=== PATIENT | female | born 1970 | race Hispanic/Latino ===

== ENCOUNTER 2021-09-20 16:55 | Observation (INO) | payer OTHER ==
[~2021-09-20] VITALS: Ht 152.4 cm; Wt 100.2 kg
[~2021-09-20 16:55] MED LIST: IBUPROFEN400 MG PO; PHENTERMINE H37.5 MG PO
[2021-09-20] MEDS ORDERED: ACETAMINOPHEN 325 MG TAB PO ONE (17:30)
[2021-09-20 18:00] LABS: CLARITY,URINE CLOUDY (CLEAR); COLOR,URINE YELLOW (YELLOW); KETONES,URINE 1+ (NEGATIVE); LEUKOCYTE ESTERASE ,URINE TRACE (NEGATIVE); NITRITE,URINE NEGATIVE (NEGATIVE); PROTEIN,URINE DIPSTICK >=300 (NEGATIVE)
[2021-09-20 18:13] LABS: BACTERIA,URINE MANY /HPF; EPITHELIAL CELLS,URINE MANY /LPF; WBC,URINE (MAN) >50 /HPF (0-5)
[2021-09-20] MEDS ORDERED: IBUPROFEN 600 MG TAB PO STA (18:29)
[2021-09-20] MEDS ORDERED: CEFTRIAXONE 1 GM in SODIUM CHLORIDE 0.9% 50ML 50 ML IV ONE (18:30)
[2021-09-20] MEDS ORDERED: SODIUM CHLORIDE 0.9% 1000ML 1,000 ML IV ONE ×2 (18:30→19:15)
[2021-09-20 18:40] LABS: BASOPHILS % 0.3 % (0.0-1.0); HEMATOCRIT 39.2 % (34.2-44.1); HEMOGLOBIN 12.9 g/dL (12.0-16.0); LYMPHOCYTES # (AUTO) 1.8 (1.0-3.2); LYMPHOCYTES % 15.2 % (18.0-39.1); MEAN CORPUSCULAR HEMOGLOBIN 29.3 pg (28-32); MEAN CORPUSCULAR HGB CONC 32.9 g/dL (31-35); MEAN CORPUSCULAR VOLUME 89.1 fL (81-99); MONOCYTES % 8.4 % (4.4-11.3); NEUTROPHILS # (AUTO) 8.7 (2.1-6.9); NEUTROPHILS % 75.8 % (38.7-80.0); PLATELET COUNT 257 x10e3/uL (140-360); RED CELL DISTRIBUTION WIDTH 12.7 % (11.7-14.4)
[2021-09-20] MEDS ORDERED: IBUPROFEN 600 MG TAB ONE (18:42)
[2021-09-20 18:58] LABS: ALBUMIN/GLOBULIN RATIO 0.7 (0.8-2.0); ANION GAP 15.8 mmol/L (8-16); CALCIUM 8.4 mg/dL (8.4-10.2); CREATININE, SERUM 0.74 mg/dL (0.57-1.11); POTASSIUM 3.8 mmol/L (3.5-5.1)
[2021-09-20] MEDS ORDERED: ACETAMINOPHEN 325 MG TAB PO PRN (19:30)
[2021-09-20] MEDS: ALBUTEROL SULF 0.083% NEB SOLN 3 ML NEB NEB SCH ×3 (19:30→23:12)
[2021-09-20] MEDS: SODIUM CHLORIDE 0.9% 1000ML 1,000 ML IV SCH ×2 (19:30→22:30)
[2021-09-20 21:09] VITALS: BP 99/66
[2021-09-20 21:51] VITALS: BP 99/66
[2021-09-20] MEDS ORDERED: VASOTEC5 MG PO (22:09)
[2021-09-20] MEDS ORDERED: METFORMIN HCL500 MG PO (22:09)
[2021-09-20] MEDS ORDERED: OMEPRAZOLE20 MG PO (22:09)
[2021-09-20] MEDS ORDERED: TRULICITY3 MG/0.5 M SC (22:09)
[2021-09-20] MEDS ORDERED: ATORVASTATIN CA10 MG PO (22:09)
[2021-09-20] MEDS: IPRATROPIUM BROMIDE 0.02% 2.5 ML NEB NEB SCH (23:12)
[2021-09-21] VITALS: BP 102/63
[2021-09-21 01:41] LABS: CREATINE KINASE 54 IU/L (29-168)
[2021-09-21] MEDS: ALBUTEROL SULF 0.083% NEB SOLN 3 ML NEB NEB SCH ×5 (03:15→23:40)
[2021-09-21 04:00] VITALS: BP 107/75
[2021-09-21] MEDS: IPRATROPIUM BROMIDE 0.02% 2.5 ML NEB NEB SCH ×3 (06:55→19:10)
[2021-09-21 07:01] LABS: BASOPHILS % 0.4 % (0.0-1.0); EOSINOPHILS % 0.1 % (0.0-6.0); HEMATOCRIT 36.7 % (34.2-44.1); HEMOGLOBIN 11.7 g/dL (12.0-16.0); LYMPHOCYTES # (AUTO) 1.5 (1.0-3.2); LYMPHOCYTES % 20.1 % (18.0-39.1); MEAN CORPUSCULAR HEMOGLOBIN 29.4 pg (28-32); MEAN CORPUSCULAR HGB CONC 31.9 g/dL (31-35); MEAN CORPUSCULAR VOLUME 92.2 fL (81-99); MONOCYTES # (AUTO) 0.8 (0.2-0.8); MONOCYTES % 10.7 % (4.4-11.3); NEUTROPHILS # (AUTO) 5.1 (2.1-6.9); NEUTROPHILS % 68.3 % (38.7-80.0); PLATELET COUNT 204 x10e3/uL (140-360); RED BLOOD COUNT 3.98 x10e6/uL (3.6-5.1); RED CELL DISTRIBUTION WIDTH 12.9 % (11.7-14.4)
[2021-09-21 07:20] LABS: ALBUMIN 2.4 g/dL (3.5-5.0); ALBUMIN/GLOBULIN RATIO 0.6 (0.8-2.0); ANION GAP 12.5 mmol/L (8-16); CREATININE, SERUM 0.57 mg/dL (0.57-1.11); POTASSIUM 3.5 mmol/L (3.5-5.1)
[2021-09-21 08:08] LABS: CREATINE KINASE MB 0.7 ng/mL (0-5.0)
[2021-09-21 08:14] VITALS: BP 113/75
[2021-09-21] MEDS: CEFTRIAXONE 1 GM in SODIUM CHLORIDE 0.9% 50ML 50 ML IV SCH (08:45)
[2021-09-21] MEDS ORDERED: GUAIFENESIN/DEXTROMETHORPHAN LIQD 5 ML UDC NG PRN (09:00)
[2021-09-21] MEDS ORDERED: DEXTROSE 50% SYRINGE 50 ML IV PRN (09:00)
[2021-09-21 09:19] LABS: CHOL/HDL RATIO 6.5 (3.0-3.6)
[2021-09-21] MEDS: SODIUM CHLORIDE 0.9% 1000ML 1,000 ML IV SCH ×2 (09:53→17:51)
[2021-09-21] MEDS: BENZONATATE 100 MG CAP PO SCH ×3 (10:17→21:06)
[2021-09-21] MEDS: ENALAPRIL MALEATE 5 MG TAB PO SCH (10:17)
[2021-09-21] MEDS: LORATADINE 10 MG TAB PO SCH (10:17)
[2021-09-21] MEDS: INSULIN REGULAR, HUMAN 100 UNIT/1 ML SQ SCH ×3 (11:30→21:06)
[2021-09-21 14:00] LABS: CREATINE KINASE MB 0.6 ng/mL (0-5.0)
[2021-09-21] MEDS ORDERED: ENOXAPARIN SOD INJ 40 MG/0.4 ML SYR SC SCH (17:00)
[2021-09-21] MEDS ORDERED: ALPRAZOLAM 0.25 MG TAB PO PRN (19:30)
[2021-09-21 20:00] VITALS: BP 134/79
[2021-09-21] MEDS ORDERED: ATORVASTATIN 10 MG TAB PO SCH (21:00)
[2021-09-22] VITALS: BP 115/71
[2021-09-22] MEDS: ALBUTEROL SULF 0.083% NEB SOLN 3 ML NEB NEB SCH ×2 (03:30→06:58)
[2021-09-22 04:00] VITALS: BP 109/69
[2021-09-22] MEDS: SODIUM CHLORIDE 0.9% 1000ML 1,000 ML IV SCH (06:33)
[2021-09-22] MEDS: IPRATROPIUM BROMIDE 0.02% 2.5 ML NEB NEB SCH (06:58)
[2021-09-22] MEDS ORDERED: PANTOPRAZOLE SOD 40 MG TABEC PO SCH (07:30)
[2021-09-22] MEDS: INSULIN REGULAR, HUMAN 100 UNIT/1 ML SQ SCH (07:30)
[2021-09-22 08:05] VITALS: BP 116/75
[2021-09-22 08:21] VITALS: BP 116/75
[2021-09-22] MEDS: BENZONATATE 100 MG CAP PO SCH (09:04)
[2021-09-22] MEDS: CEFTRIAXONE 1 GM in SODIUM CHLORIDE 0.9% 50ML 50 ML IV SCH (09:04)
[2021-09-22] MEDS: LORATADINE 10 MG TAB PO SCH (09:04)
[2021-09-22] MEDS: ENALAPRIL MALEATE 5 MG TAB PO SCH (09:05)
[2021-09-22] MEDS ORDERED: CEPHALEXIN500 MG PO (10:57)
[2021-09-22] MEDS ORDERED: LORATADINE10 MG PO (10:57)
[2021-09-22] MEDS ORDERED: TESSALON PERLE100 MG PO (10:57)
[2021-09-22] MEDS ORDERED: ZITHROMAX500 MG PO (10:57)
[2021-09-22 11:27] VITALS: BP 107/71
== END 2021-09-22 11:00 | disposition home or self-care (01) ==
LOC: ER 17:22 → ERHOLD 19:34 → MED/SURG3 21:25 → INTOOBSV 09-22 08:23 → OBSVTOIN 09-22 08:23
PROVIDERS: ADMIT Internal Medicine; ATTEND Internal Medicine
DX: A41.9 Sepsis, unspecified organism (principal); N39.0 Urinary tract infection, site not specified; J18.9 Pneumonia, unspecified organism; E11.9 Type 2 diabetes mellitus without complications; E66.9 Obesity, unspecified; Z68.41 Body mass index [BMI] 40.0-44.9, adult; K21.9 Gastro-esophageal reflux disease without esophagitis; I10 Essential (primary) hypertension; Z20.822 Contact with and (suspected) exposure to COVID-19; Z79.84 Long term (current) use of oral hypoglycemic drugs
CPT/HCPCS: 36415 ×3; 71045; 80053 ×2; 80061; 81001; 82550 ×2; 82553 ×2; 82948 ×3; 83036; 83605; 84484 ×2; 85025 ×2; 87040; 87086; 94640 ×3; 94799 ×3; 96361 ×2; 99285; G0378 ×3; J0456 ×2; J0696 ×3; J1650; J7030 ×3; J7050 ×2; S0164; U0002

== ENCOUNTER → 2021-10-29 | Day surgery (SDC) | payer OTHER ==
[~2021-10-29] MED LIST changes: +AMOXICILLIN250 MG PO; +ATORVASTATIN CA10 MG PO; +BUPIVACAINE HCL 0.5% INJ 30 ML VIAL INJ ONE; +CEPHALEXIN500 MG PO; +DEXAMETHASONE SOD PHOS INJ 4 MG/ML SDV ONE; +FENTANYL CITRATE/PF 100MCG/2 ML INJ ONE; +KETOROLAC TROMETHAMINE 30 MG/ML VIAL ONE; +LIDOCAINE HCL 2% LOCAL INJ 5 ML SDV VIAL INJ ONE; +LORATADINE10 MG PO; +METFORMIN HCL500 MG PO; +MIDAZOLAM HCL 2 MG/2 ML VIAL ONE; +OMEPRAZOLE20 MG PO; +ONDANSETRON HCL INJ 2MG/ML 2ML 2 MG/ML VIAL ONE; +POVIDONE IODINE 0.05% 0.05 % ML PO ONE; +PROPOFOL IV EMULSION 10 MG/ML 20 ML VIAL ONE; +SEVOFLURANE INHAL SOLN 250 ML PEN BTL ONE; +SODIUM CHLORIDE 0.9% 50ML 100 ML ONE; +TESSALON PERLE100 MG PO; +TRULICITY3 MG/0.5 M SC; +VASOTEC5 MG PO; +ZITHROMAX500 MG PO
[2021-10-29 09:40] VITALS: BP 140/84
== END | disposition home or self-care (01) ==
LOC: OR 05:41
PROVIDERS: ATTEND Specialist
DX: S83.221A Peripheral tear of medial meniscus, current injury, right knee, initial encounter (principal); M76.51 Patellar tendinitis, right knee; M17.11 Unilateral primary osteoarthritis, right knee; M22.41 Chondromalacia patellae, right knee; E11.9 Type 2 diabetes mellitus without complications; I10 Essential (primary) hypertension; E66.01 Morbid (severe) obesity due to excess calories; X58.XXXA Exposure to other specified factors, initial encounter; Z01.810 Encounter for preprocedural cardiovascular examination; Z01.812 Encounter for preprocedural laboratory examination; Z20.822 Contact with and (suspected) exposure to COVID-19; Z79.84 Long term (current) use of oral hypoglycemic drugs; Z79.899 Other long term (current) drug therapy; Z68.41 Body mass index [BMI] 40.0-44.9, adult; Z87.01 Personal history of pneumonia (recurrent)
CPT/HCPCS: 29881; 36415; 81025; 82948; 93005; J0690; J1100; J1885; J2001; J2250; J2405; J2704; J3010; U0002

== ENCOUNTER 2021-11-14 07:12 | Outpatient (RCR) | payer OTHER ==
[~2021-11-14 07:12] MED LIST changes: -BUPIVACAINE HCL 0.5% INJ 30 ML VIAL INJ ONE; -DEXAMETHASONE SOD PHOS INJ 4 MG/ML SDV ONE; -FENTANYL CITRATE/PF 100MCG/2 ML INJ ONE; -KETOROLAC TROMETHAMINE 30 MG/ML VIAL ONE; -LIDOCAINE HCL 2% LOCAL INJ 5 ML SDV VIAL INJ ONE; -MIDAZOLAM HCL 2 MG/2 ML VIAL ONE; -ONDANSETRON HCL INJ 2MG/ML 2ML 2 MG/ML VIAL ONE; -POVIDONE IODINE 0.05% 0.05 % ML PO ONE; -PROPOFOL IV EMULSION 10 MG/ML 20 ML VIAL ONE; -SEVOFLURANE INHAL SOLN 250 ML PEN BTL ONE; -SODIUM CHLORIDE 0.9% 50ML 100 ML ONE
== END 2021-11-17 ==
LOC: PT 07:12
PROVIDERS: ATTEND Specialist
DX: Z47.1 Aftercare following joint replacement surgery (principal); S83.221A Peripheral tear of medial meniscus, current injury, right knee, initial encounter; M76.51 Patellar tendinitis, right knee; M17.11 Unilateral primary osteoarthritis, right knee

== ENCOUNTER 2021-11-21 07:00 | Outpatient (RCR) | payer OTHER | END 2021-12-18 | LOC: PT 07:00 | PROVIDERS: ATTEND Specialist | DX: Z47.1 Aftercare following joint replacement surgery (principal); Z96.651 Presence of right artificial knee joint ==

== ENCOUNTER → 2022-03-31 | Day surgery (SDC) | payer OTHER ==
[2022-03-27 09:17] LABS: ANION GAP 10.1 mmol/L (8-16); CALCIUM 8.7 mg/dL (8.4-10.2); CREATININE, SERUM 0.62 mg/dL (0.57-1.11); POTASSIUM 4.1 mmol/L (3.5-5.1)
[~2022-03-31] MED LIST changes: +ACETAMINOPHEN 1000 MG/100 ML IV ONE; +BUPIVACAINE 0.25% 30ML SDV ONE; +DEXAMETHASONE SOD PHOS INJ 4 MG/ML SDV ONE; +FENTANYL CITRATE/PF 100MCG/2 ML INJ ONE; +KETOROLAC TROMETHAMINE 30 MG/ML VIAL ONE; +LIDOCAINE HCL 2% LOCAL INJ 5 ML SDV VIAL INJ ONE; +MIDAZOLAM HCL 2 MG/2 ML VIAL ONE; +MOBIC7.5 MG PO; +ONDANSETRON HCL INJ 2MG/ML 2ML 2 MG/ML VIAL ONE; +POVIDONE IODINE 0.05% 0.05 % ML PO ONE; +PROPOFOL IV EMULSION 10 MG/ML 20 ML VIAL ONE; +SEVOFLURANE INHAL SOLN 250 ML PEN BTL ONE
[2022-03-31 14:15] VITALS: BP 127/79
== END | disposition home or self-care (01) ==
LOC: OR 09:49
PROVIDERS: ATTEND Podiatrist Foot & Ankle Surgery
DX: S92.311P Displaced fracture of first metatarsal bone, right foot, subsequent encounter for fracture with malunion (principal); T84.84XA Pain due to internal orthopedic prosthetic devices, implants and grafts, initial encounter; M06.9 Rheumatoid arthritis, unspecified; M19.90 Unspecified osteoarthritis, unspecified site; I10 Essential (primary) hypertension; E78.5 Hyperlipidemia, unspecified; E11.9 Type 2 diabetes mellitus without complications; Y83.8 Other surgical procedures as the cause of abnormal reaction of the patient, or of later complication, without mention of misadventure at the time of the procedure; Z91.048 Other nonmedicinal substance allergy status; Z01.810 Encounter for preprocedural cardiovascular examination; Z01.812 Encounter for preprocedural laboratory examination; Z20.822 Contact with and (suspected) exposure to COVID-19; Z79.84 Long term (current) use of oral hypoglycemic drugs; Z79.899 Other long term (current) drug therapy
CPT/HCPCS: 0223U; 28485; 36415 ×2; 80048; 81025; 82948; 88304; 88311; 93005; C1713 ×5; C1734; J0131; J0690; J1100; J1885; J2001; J2405; J2704; J3010; J2250

== ENCOUNTER 2022-07-06 15:59 | Outpatient (RCR) | payer OTHER ==
[~2022-07-06 15:59] MED LIST changes: -ACETAMINOPHEN 1000 MG/100 ML IV ONE; -BUPIVACAINE 0.25% 30ML SDV ONE; -DEXAMETHASONE SOD PHOS INJ 4 MG/ML SDV ONE; -FENTANYL CITRATE/PF 100MCG/2 ML INJ ONE; -KETOROLAC TROMETHAMINE 30 MG/ML VIAL ONE; -LIDOCAINE HCL 2% LOCAL INJ 5 ML SDV VIAL INJ ONE; -MIDAZOLAM HCL 2 MG/2 ML VIAL ONE; -ONDANSETRON HCL INJ 2MG/ML 2ML 2 MG/ML VIAL ONE; -POVIDONE IODINE 0.05% 0.05 % ML PO ONE; -PROPOFOL IV EMULSION 10 MG/ML 20 ML VIAL ONE; -SEVOFLURANE INHAL SOLN 250 ML PEN BTL ONE
== END 2022-07-20 ==
LOC: PT 15:59
PROVIDERS: ATTEND Podiatrist Foot & Ankle Surgery
DX: S92.311D Displaced fracture of first metatarsal bone, right foot, subsequent encounter for fracture with routine healing (principal); R26.2 Difficulty in walking, not elsewhere classified; M62.81 Muscle weakness (generalized); M79.671 Pain in right foot; M25.672 Stiffness of left ankle, not elsewhere classified